=== PATIENT | male | born 1985 | race Two or more races ===

== ENCOUNTER 2023-01-13 21:12 | Emergency (ER) | payer OTHER ==
[~2023-01-13] VITALS: Ht 167.6 cm; Wt 82.9 kg
[~2023-01-13 21:12] MED LIST: IBUP-1456 PO
[2023-01-13] MEDS ORDERED: CYCL-837 PO (21:55)
[2023-01-13] MEDS ORDERED: IBUP-1456 PO (21:55)
[2023-01-13] MEDS ORDERED: KETOROLAC TROMETH 60MG/2ML VIAL IM ONE (22:00)
[2023-01-13 22:40] VITALS: BP 137/72
== END 2023-01-13 22:38 | disposition home or self-care (01) ==
LOC: ER 21:12
DX: S16.1XXA Strain of muscle, fascia and tendon at neck level, initial encounter (principal); X58.XXXA Exposure to other specified factors, initial encounter; Y93.89 Activity, other specified; Y92.89 Other specified places as the place of occurrence of the external cause; Y99.8 Other external cause status
CPT/HCPCS: 96372; 99283; J1885

== ENCOUNTER 2023-05-20 07:33 | Emergency (ER) | payer OTHER ==
[~2023-05-20] VITALS: Ht 167.6 cm; Wt 85.1 kg
[~2023-05-20 07:33] MED LIST changes: +CYCL-837 PO
[2023-05-20 07:40] VITALS: BP 140/100; PULSE 112; RESP 8; O2SAT 98
== END 2023-05-20 07:40 | disposition left against medical advice (07) ==
LOC: ER 07:33
DX: M54.2 Cervicalgia (principal); Z53.21 Procedure and treatment not carried out due to patient leaving prior to being seen by health care provider

== ENCOUNTER 2024-06-07 06:45 | Emergency (ER) | payer MEDICAID, OTHER ==
[~2024-06-07] VITALS: Ht 167.6 cm; Wt 86.0 kg
[2024-06-07 06:45] VITALS: BP 138/104; PULSE 101; RESP 18; O2SAT 99
== END 2024-06-07 09:20 | disposition left against medical advice (07) ==
LOC: ER 06:46
DX: S60.512A Abrasion of left hand, initial encounter (principal); Z53.21 Procedure and treatment not carried out due to patient leaving prior to being seen by health care provider; W01.0XXA Fall on same level from slipping, tripping and stumbling without subsequent striking against object, initial encounter; Y93.89 Activity, other specified; Y92.89 Other specified places as the place of occurrence of the external cause; Y99.8 Other external cause status